=== PATIENT | male | born 1955 | race Two or more races ===

== ENCOUNTER 2020-08-12 08:42 | Day surgery (SDC) | payer OTHER ==
[~2020-08-12 08:42] MED LIST: CRESTOR10 MG PO; GLIPIZIDE XL5 MG PO; METFORMIN HCL500 M3 PO; ZESTRIL20 MG PO
== END 2020-08-12 18:11 | disposition home or self-care (01) ==
LOC: CIR.AMB 08:42
PROVIDERS: ATTEND Colon & Rectal Surgery
DX: C44.520 Squamous cell carcinoma of anal skin (principal); K64.2 Third degree hemorrhoids; Z20.822 Contact with and (suspected) exposure to COVID-19

== ENCOUNTER 2021-06-16 06:05 | Day surgery (SDC) | payer OTHER | END 2021-06-16 10:25 | disposition home or self-care (01) | LOC: AMB-ENDOS 06:05 | PROVIDERS: ATTEND Colon & Rectal Surgery | DX: K63.5 Polyp of colon (principal); Z86.010 Personal history of colon polyps; K57.30 Diverticulosis of large intestine without perforation or abscess without bleeding; Z92.21 Personal history of antineoplastic chemotherapy; Z85.72 Personal history of non-Hodgkin lymphomas; E78.5 Hyperlipidemia, unspecified; I10 Essential (primary) hypertension; E11.9 Type 2 diabetes mellitus without complications; Z79.84 Long term (current) use of oral hypoglycemic drugs ==